=== PATIENT | male | born 1965 | race African-American/Black ===

== ENCOUNTER 2019-06-20 14:12 | Emergency (ER) | payer OTHER ==
[2019-06-20 14:23] VITALS: BMI 21.5
[2019-06-20] MEDS ORDERED: ALBUTEROL SO4 2.5/IPRATROPIUM 0.5 INH SOL 3 ML VIAL.NEB. NEB ONE ×3 (14:40→15:03)
[2019-06-20] MEDS ORDERED: methylPREDNISolone NA SUCC 125 MG/2 ML VIAL IVPUSH ONE (14:40)
[2019-06-20] MEDS ORDERED: methylPREDNISolone NA SUCC 125 MG/2 ML VIAL ONE (14:42)
--- NOTE | 2019-06-20 14:50 | PDOC ---
History of Present Illness - General Chief Complaint: Asthma Stated Complaint: DIFFICULTY BREATHING Time Seen by Provider: 06/20/19 14:38 History Source: Patient Exam Limitations: Clinical Condition - History of Present Illness Initial Comments: 06/20/19 14:47 Patient with past medical history of asthma presented with complaint of over 1 hour history of wheezing, chest tightness and coughing status post doing housecleaning and started having chest tightness. Patient called EMS and reported had 1 nebulizer treatment given by EMS in route over here. Patient reported has not had an asthma attack in many months and ran out of his inhaler medication. Denies fever, chills, chest pain, dizziness, palpitations, numbness or tingling sensation. Denies any other symptoms Is this a multiple visit Asthma Patient?: No Timing/Duration: reports: just prior to arrival Past History - Past Medical History Allergies/Adverse Reactions: Allergies Allergy/AdvReac Type Severity Reaction Status Date / Time No Known Allergies Allergy Verified 06/20/19 14:23 Home Medications: Ambulatory Orders Albuterol Sulfate Inhaler - [Ventolin Hfa Inhaler -] 2 inh PO Q6H #1 inh Methylprednisolone [Medrol Dose Meliton] 4 mg PO ASDIR #21 tablet 06/20/19 Montelukast Na [Singulair -] 10 mg PO DAILY #7 tablet 06/20/19 Asthma: Yes COPD: No - Surgical History Neurologic Surgery: Yes (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) - Psycho Social/Smoking Cessation Hx Smoking History: Current every day smoker Have you smoked in the past 12 months: Yes Number of Cigarettes Smoked Daily: 3 Information on smoking cessation initiated: Yes Hx Alcohol Use: No Drug/Substance Use Hx: No Review of Systems - Review of Systems Able to Perform ROS?: Yes Is the patient limited Jamaican proficient: No Constitutional: No: Chills, Fever, Malaise HEENTM: No: Symptoms Reported, See HPI, Eye Pain, Blurred Vision, Tearing, Recent change in vision, Double Vision, Cataracts, Ear Pain, Ocular Prothesis, Ear Discharge, Nose Pain, Nose Congestion, Tinnitus, Nose Bleeding, Hearing Loss , Throat Pain, Throat Swelling, Mouth Pain, Dental Problems, Difficulty Swallowing, Mouth Swelling, Other Respiratory: Yes: Symptoms reported, See HPI, Cough, SOB at Rest, Wheezing. No : Orthopnea, Shortness of Breath, SOB with Exertion, Stridor, Productive cough, Hemoptysis Cardiac (ROS): Yes: Symptoms Reported, See HPI, Chest Tightness. No: Chest Pain , Edema, Irregular Heart Rate, Lightheadedness, Palpitations, Syncope, Other ABD/GI: No: Symptoms Reported, Nausea, Vomiting Musculoskeletal: No: Symptoms Reported Integumentary: No: Symptoms Reported, Rash Neurological: No: Symptoms reported, See HPI, Headache, Dizziness All Other Systems: Reviewed and Negative *Physical Exam - Vital Signs Last Vital Signs Temp Pulse Resp BP Pulse Ox 97.4 F L 74 18 150/89 99 06/20/19 14:16 06/20/19 14:16 06/20/19 14:16 06/20/19 14:16 06/20/19 14:16 - Physical Exam 06/20/19 14:49 GENERAL: Well developed, well nourished. Awake and alert in mild acute distress. HEENT: Normocephalic, atraumatic. PERRLA, EOMI. No conjunctival pallor. Sclera are non-icteric. Moist mucous membranes. Oropharynx is clear. NECK: Supple. Full ROM. CARDIOVASCULAR: Regular rate and rhythm. No murmurs, rubs, or gallops. Distal pulses are 2+ and symmetric. PULMONARY: Moderate diffuse respiratory wheezing with mild respiratory distress. No rales or rhonchi. MUSCULOSKELETAL Normal range of motion at all joints. SKIN: Warm and dry. Normal capillary refill. No rashes. no cyanosis. NEUROLOGICAL: Alert, awake, appropriate. Gait is normal without ataxia. PSYCHIATRIC: Cooperative. Good eye contact. Appropriate mood General Appearance: Yes: Nourished, Appropriately Dressed, Mild Distress Medical Decision Making - Medical Decision Making 06/20/19 14:48 Patient with past medical history of asthma presented with complaint of over 1 hour history of wheezing, chest tightness and coughing status post doing housecleaning and started having chest tightness. Patient called EMS and reported had 1 nebulizer treatment given by EMS in route over here. Patient reported has not had an asthma attack in many months and ran out of his inhaler medication. Denies fever, chills, chest pain, dizziness, palpitations, numbness or tingling sensation. Denies any other symptoms Exam significant for moderate diffuse wheezing without rhonchi or rails with patient in mild respiratory distress. Symptoms likely asthma exacerbation. DuoNeb 3 treatment ordered for bronchospasm and wheezing and Solu-Medrol 125 mg IV ordered for bronchospasm. Reassess after 20 minutes 06/20/19 15:34 Patient report improvement in wheezing and chest tightness post duoneb and solumedrol. Patient stable for discharge on ventolin prn for Asthma and medrol- meliton with pulmonology f/u Discharge - Discharge Information Problems reviewed: Yes Clinical Impression/Diagnosis: Bronchospasm, acute Asthma attack Qualifiers: Asthma severity: mild Asthma persistence: intermittent Qualified Code(s): J45.21 - Mild intermittent asthma with (acute) exacerbation Condition: Improved Disposition: HOME - Admission No - Additional Discharge Information Prescriptions: Albuterol Sulfate Inhaler - [Ventolin Hfa Inhaler -] 2 inh PO Q6H #1 inh Methylprednisolone [Medrol Dose Meliton] 4 mg PO ASDIR #21 tablet Montelukast Na [Singulair -] 10 mg PO DAILY #7 tablet - Follow up/Referral Referrals: Leonidas Church MD [Staff Physician] - - Patient Discharge Instructions Patient Printed Discharge Instructions: Asthma -- Adult Additional Instructions: Take prescribed inhaler as needed for Asthma. Follow-up with referred seasonal driver if Asthma symptoms persist. Come back to ER if worsening shortness of breathe, chest pains, dizziness - Post Discharge Activity
[2019-06-20 15:49] VITALS: BP 125/77; PULSE 78; TEMP 98.1
== END 2019-06-20 16:00 | disposition home or self-care (01) ==
LOC: JER 14:12
PROC: 3E0F7GC Introduction of Other Therapeutic Substance into Respiratory Tract, Via Natural or Artificial Opening (ICD-10-PCS; principal; 2019-06-20)
PROC: 3E0333Z Introduction of Anti-inflammatory into Peripheral Vein, Percutaneous Approach (ICD-10-PCS; 2019-06-20)
DX: J45.21 Mild intermittent asthma with (acute) exacerbation (principal)
CPT/HCPCS: 94640; 96374; 99282-25

== ENCOUNTER 2022-01-19 14:14 | Emergency (ER) | payer OTHER ==
[2022-01-19 14:23] VITALS: RESP 16; BMI 17.6
[2022-01-19] MEDS ORDERED: ACETAMINOPHEN 325 MG TABLET (FP) PO ONE (14:50)
[2022-01-19] MEDS ORDERED: ACETAMINOPHEN 325 MG TABLET (FP) ONE (14:52)
[2022-01-19] MEDS ORDERED: SODIUM CHLORIDE 0.9% 500 ML INFUS.BAG IV ONE (15:08)
[2022-01-19 15:50] VITALS: BP 115/54; PULSE 80; TEMP 99.7
== END 2022-01-19 16:46 | disposition home or self-care (01) ==
LOC: JER 14:14
DX: B34.9 Viral infection, unspecified (principal)
CPT/HCPCS: 0241U-QW; 99283-25

== ENCOUNTER 2022-01-24 20:33 | Inpatient (IN) | payer OTHER ==
[2022-01-24] MEDS ORDERED: LACTATED RINGERS SOLUTION 1,000 ML/1,000 ML INFUS.BAG IV SCH (22:45)
[2022-01-24 23:03] LABS: BASO % 0.5 % (0-2.0); EOS % 0.6 % (0-4.5); HEMATOCRIT 33.2 % (35.4-49); HEMOGLOBIN 11.4 GM/dL (11.7-16.9); LYMPH % 6.2 % (8-40); MCH 33.2 pg (25.7-33.7); MCHC 34.3 g/dl (32.0-35.9); MEAN CELL VOLUME 96.8 fl (80-96); MEAN PLT VOLUME 9.3 fl (7.5-11.1); MONO % 7.3 % (3.8-10.2); NEUT % 85.4 % (42.8-82.8); PLATELET COUNT 317 10^3/uL (134-434); RBC 3.43 M/mm3 (4.00-5.60); RDW 13.2 % (11.9-15.9); WHITE BLOOD COUNT 12.3 K/mm3 (4.0-10.0)
[2022-01-24 23:22] LABS: CALCIUM 8.9 mg/dL (8.5-10.1)
[2022-01-24 23:23] LABS: BLOOD UREA NITROGEN 48.9 mg/dL (7-18); MAGNESIUM 2.1 mg/dL (1.8-2.4)
[2022-01-24 23:26] LABS: CREATININE 2.9 mg/dL (0.55-1.3)
[2022-01-24 23:27] LABS: TOT PROT 7.7 g/dl (6.4-8.2)
[2022-01-25] MEDS ORDERED: SODIUM CHLORIDE 0.9% 500 ML INFUS.BAG IV ONE (00:46)
[2022-01-25] MEDS ORDERED: AZITHROMYCIN IVPB 500 MG in DEXTROSE 5%-WATER - 250 ML IVPB ONE (00:46)
[2022-01-25] MEDS ORDERED: CEFTRIAXONE 1,000 MG in DEXTROSE 5%-WATER - 50 ML IVPB ONE (00:46)
[2022-01-25] MEDS ORDERED: AZITHROMYCIN IVPB 500 MG/250 ML BAG IVPB ONE (02:13)
[2022-01-25] MEDS ORDERED: CEFTRIAXONE 1 GM/50 ML BAG ONE (02:13)
[2022-01-25 03:30] LABS: EPI CELLS >36 /uL (0-25.1); HYALINE CASTS 24 /uL (0-3.1); PH,URINE 5.5 (5.0-8.0); URINE APPEARANCE CLOUDY; URINE BACTERIA 0 /uL (0-1359); URINE BILIRUBIN NEGATIVE (NEGATIVE); URINE COLOR DK YELLOW; URINE GLUCOSE (UA) NEGATIVE (NEGATIVE); URINE KETONE NEGATIVE (NEGATIVE); URINE LEUK ESTERASE NEGATIVE (NEGATIVE); URINE NITRITE NEGATIVE (NEGATIVE); URINE PROTEIN 2+ (NEGATIVE); URINE RBC 8 /uL (0-23.9); URINE WBC 52 /uL (0-25.8)
[2022-01-25] MEDS ORDERED: ALBUTEROL SO4 0.083% IH SOL 2.5 MG/3 ML VIAL.NEB. NEB PRN (06:55)
[2022-01-25 06:56] LABS: BASO % 0.3 % (0-2.0); EOS % 0.5 % (0-4.5); HEMATOCRIT 33.6 % (35.4-49); HEMOGLOBIN 11.1 GM/dL (11.7-16.9); LYMPH % 4.1 % (8-40); MCH 32.3 pg (25.7-33.7); MCHC 33.1 g/dl (32.0-35.9); MEAN CELL VOLUME 97.6 fl (80-96); MONO % 6.6 % (3.8-10.2); NEUT % 88.5 % (42.8-82.8); PLATELET COUNT 327 10^3/uL (134-434); RBC 3.44 M/mm3 (4.00-5.60); RDW 13.6 % (11.9-15.9); WHITE BLOOD COUNT 13.4 K/mm3 (4.0-10.0)
[2022-01-25 07:26] LABS: BLOOD UREA NITROGEN 45.5 mg/dL (7-18); CALCIUM 8.2 mg/dL (8.5-10.1)
[2022-01-25 07:29] LABS: CREATININE 2.1 mg/dL (0.55-1.3)
[2022-01-25 07:31] LABS: BILIRUBIN,TOTAL 0.6 mg/dL (0.2-1); TOT PROT 6.6 g/dl (6.4-8.2)
[2022-01-25 07:33] LABS: ALBUMIN 2.4 g/dl (3.4-5.0)
[2022-01-25] MEDS ORDERED: ACETAMINOPHEN 325 MG TABLET (FP) PO ONE (09:33)
[2022-01-25] MEDS ORDERED: ACETAMINOPHEN 325 MG TABLET (FP) ONE (09:34)
[2022-01-25] MEDS ORDERED: ALBUTEROL SO4 2.5/IPRATROPIUM 0.5 INH SOL 3 ML VIAL.NEB. NEB PRN (14:31)
[2022-01-25 14:52] LABS: EPI CELLS >36 /uL (0-25.1); HYALINE CASTS 7 /uL (0-3.1); PH,URINE 5.5 (5.0-8.0); URINE APPEARANCE CLEAR; URINE BACTERIA 5 /uL (0-1359); URINE BILIRUBIN NEGATIVE (NEGATIVE); URINE COLOR YELLOW; URINE GLUCOSE (UA) NEGATIVE (NEGATIVE); URINE KETONE NEGATIVE (NEGATIVE); URINE LEUK ESTERASE NEGATIVE (NEGATIVE); URINE NITRITE NEGATIVE (NEGATIVE); URINE PROTEIN 2+ (NEGATIVE); URINE RBC 10 /uL (0-23.9); URINE WBC 34 /uL (0-25.8)
[2022-01-25] MEDS: SODIUM CHLORIDE 1,000 ML IV SCH (16:14)
[2022-01-25] MEDS: ACETAMINOPHEN 325 MG TABLET (FP) PO PRN (17:56)
[2022-01-25] MEDS ORDERED: ACETAMINOPHEN 1000 MG/100 ML BAG IVPB ONE (23:47)
[2022-01-26 07:35] LABS: BASO % 0.5 % (0-2.0); HEMATOCRIT 28.5 % (35.4-49); HEMOGLOBIN 9.5 GM/dL (11.7-16.9); LYMPH % 11.9 % (8-40); MCH 31.9 pg (25.7-33.7); MCHC 33.3 g/dl (32.0-35.9); MEAN CELL VOLUME 95.9 fl (80-96); MONO % 10.5 % (3.8-10.2); NEUT % 75.1 % (42.8-82.8); PLATELET COUNT 353 10^3/uL (134-434); RBC 2.97 M/mm3 (4.00-5.60); RDW 13.3 % (11.9-15.9); WHITE BLOOD COUNT 9.3 K/mm3 (4.0-10.0)
[2022-01-26 08:00] LABS: CALCIUM 8.3 mg/dL (8.5-10.1)
[2022-01-26 08:01] LABS: ALBUMIN 2.1 g/dl (3.4-5.0); BLOOD UREA NITROGEN 27.1 mg/dL (7-18); MAGNESIUM 1.8 mg/dL (1.8-2.4)
[2022-01-26 08:03] LABS: CREATININE 1.2 mg/dL (0.55-1.3)
[2022-01-26 08:05] LABS: BILIRUBIN,TOTAL 0.8 mg/dL (0.2-1); TOT PROT 5.8 g/dl (6.4-8.2)
[2022-01-26] MEDS ORDERED: CEFTRIAXONE 1 GM in DEXTROSE 5%-WATER - 50 ML IVPB SCH (10:00)
[2022-01-26] MEDS ORDERED: AZITHROMYCIN IVPB 500 MG in DEXTROSE 5%-WATER - 250 ML IVPB SCH (10:00)
[2022-01-26] MEDS: ACETAMINOPHEN 325 MG TABLET (FP) PO PRN (14:53)
[2022-01-26] MEDS: MULTIVITAMINS (DAILY MVI) TABLET (FP) PO SCH (14:53)
[2022-01-26] MEDS: SODIUM CHLORIDE 1,000 ML IV SCH (14:54)
[2022-01-26 15:36] LABS: EPI CELLS 12 /uL (0-25.1); HYALINE CASTS 1 /uL (0-3.1); PH,URINE 6.5 (5.0-8.0); URINE APPEARANCE CLEAR; URINE BACTERIA 4 /uL (0-1359); URINE BILIRUBIN NEGATIVE (NEGATIVE); URINE COLOR YELLOW; URINE GLUCOSE (UA) NEGATIVE (NEGATIVE); URINE KETONE NEGATIVE (NEGATIVE); URINE LEUK ESTERASE NEGATIVE (NEGATIVE); URINE NITRITE NEGATIVE (NEGATIVE); URINE PROTEIN 2+ (NEGATIVE); URINE RBC 28 /uL (0-23.9); URINE WBC 14 /uL (0-25.8)
[2022-01-26] MEDS: HEPARIN NA (PORCINE) 5,000 UNITS/ML 1ML VIAL SQ SCH (23:22)
[2022-01-26 23:30] VITALS: BMI 17.4
[2022-01-27] MEDS: MULTIVITAMINS (DAILY MVI) TABLET (FP) PO SCH (10:15)
[2022-01-27] MEDS: PANTOPRAZOLE 40 MG TABLET PO SCH (10:15)
[2022-01-27] MEDS: HEPARIN NA (PORCINE) 5,000 UNITS/ML 1ML VIAL SQ SCH ×2 (10:16→21:26)
[2022-01-27 12:20] LABS: BASO % 0.7 % (0-2.0); EOS % 2.2 % (0-4.5); HEMATOCRIT 28.4 % (35.4-49); HEMOGLOBIN 9.4 GM/dL (11.7-16.9); LYMPH % 11.4 % (8-40); MCH 32.2 pg (25.7-33.7); MCHC 33.1 g/dl (32.0-35.9); MEAN CELL VOLUME 97.4 fl (80-96); MEAN PLT VOLUME 8.8 fl (7.5-11.1); MONO % 11.4 % (3.8-10.2); NEUT % 74.3 % (42.8-82.8); PLATELET COUNT 445 10^3/uL (134-434); RBC 2.92 M/mm3 (4.00-5.60); RDW 13.8 % (11.9-15.9)
[2022-01-27 12:33] LABS: CALCIUM 8.2 mg/dL (8.5-10.1)
[2022-01-27 12:34] LABS: ALBUMIN 2.1 g/dl (3.4-5.0); BLOOD UREA NITROGEN 15.1 mg/dL (7-18); MAGNESIUM 1.6 mg/dL (1.8-2.4)
[2022-01-27 12:36] LABS: CHOLESTEROL 121 mg/dL (50-200)
[2022-01-27 12:37] LABS: CREATININE 0.9 mg/dL (0.55-1.3); LDL CHOLESTEROL (ONLY SJRH) 77 mg/dL (5-100); TRIGLYCERIDES 144 mg/dL (0-150)
[2022-01-27 12:38] LABS: BILIRUBIN,TOTAL 0.6 mg/dL (0.2-1)
[2022-01-27 12:39] LABS: HDL CHOLESTEROL 15 mg/dL (40-60)
[2022-01-27] MEDS: SODIUM CHLORIDE 1,000 ML IV SCH (18:33)
[2022-01-28 07:57] LABS: BASO % 0.6 % (0-2.0); EOS % 2.9 % (0-4.5); HEMOGLOBIN 9.9 GM/dL (11.7-16.9); LYMPH % 18.4 % (8-40); MCH 33.4 pg (25.7-33.7); MCHC 34.2 g/dl (32.0-35.9); MEAN CELL VOLUME 97.5 fl (80-96); MONO % 7.6 % (3.8-10.2); NEUT % 70.5 % (42.8-82.8); PLATELET COUNT 498 10^3/uL (134-434); RBC 2.97 M/mm3 (4.00-5.60); RDW 13.8 % (11.9-15.9); WHITE BLOOD COUNT 10.5 K/mm3 (4.0-10.0)
[2022-01-28 08:35] LABS: ALBUMIN 2.3 g/dl (3.4-5.0); BLOOD UREA NITROGEN 13.6 mg/dL (7-18); CALCIUM 8.6 mg/dL (8.5-10.1); MAGNESIUM 1.6 mg/dL (1.8-2.4)
[2022-01-28 08:38] LABS: CREATININE 0.9 mg/dL (0.55-1.3)
[2022-01-28 08:40] LABS: BILIRUBIN,TOTAL 0.6 mg/dL (0.2-1); TOT PROT 6.4 g/dl (6.4-8.2)
[2022-01-28] MEDS: MULTIVITAMINS (DAILY MVI) TABLET (FP) PO SCH (10:17)
[2022-01-28] MEDS: HEPARIN NA (PORCINE) 5,000 UNITS/ML 1ML VIAL SQ SCH ×2 (10:17→21:26)
[2022-01-28] MEDS: PANTOPRAZOLE 40 MG TABLET PO SCH (10:17)
[2022-01-28] MEDS ORDERED: MAGNESIUM OXIDE 400 MG TABLET (FP) PO ONE (11:30)
[2022-01-28] MEDS: ACETAMINOPHEN 325 MG TABLET (FP) PO PRN (21:22)
[2022-01-28] MEDS: MAGNESIUM OXIDE 400 MG TABLET (FP) PO SCH (21:26)
[2022-01-29] MEDS: ACETAMINOPHEN 325 MG TABLET (FP) PO PRN ×2 (05:45→19:56)
[2022-01-29 09:02] LABS: BASO % 0.7 % (0-2.0); EOS % 3.1 % (0-4.5); HEMATOCRIT 26.6 % (35.4-49); HEMOGLOBIN 8.9 GM/dL (11.7-16.9); LYMPH % 15.9 % (8-40); MCH 32.7 pg (25.7-33.7); MCHC 33.6 g/dl (32.0-35.9); MEAN CELL VOLUME 97.3 fl (80-96); MEAN PLT VOLUME 9.1 fl (7.5-11.1); MONO % 8.5 % (3.8-10.2); NEUT % 71.8 % (42.8-82.8); PLATELET COUNT 545 10^3/uL (134-434); RBC 2.74 M/mm3 (4.00-5.60); RDW 13.9 % (11.9-15.9); WHITE BLOOD COUNT 9.5 K/mm3 (4.0-10.0)
[2022-01-29 09:32] LABS: MAGNESIUM 1.5 mg/dL (1.8-2.4)
[2022-01-29] MEDS ORDERED: MAGNESIUM SULF 50% (8.12 MEQ/2 ML-1 GM VIAL) IVPB ONE (09:40)
[2022-01-29 10:01] LABS: IRON SERUM 55 ug/dL (50-175); TOTAL IRON BINDING CAPACITY 184 ug/dL (250-450)
[2022-01-29] MEDS: MAGNESIUM OXIDE 400 MG TABLET (FP) PO SCH ×2 (10:11→21:36)
[2022-01-29] MEDS: MULTIVITAMINS (DAILY MVI) TABLET (FP) PO SCH (10:11)
[2022-01-29] MEDS: HEPARIN NA (PORCINE) 5,000 UNITS/ML 1ML VIAL SQ SCH ×2 (10:11→21:35)
[2022-01-29] MEDS: PANTOPRAZOLE 40 MG TABLET PO SCH (10:11)
[2022-01-29 11:45] LABS: BLOOD UREA NITROGEN 13.9 mg/dL (7-18); CALCIUM 8.1 mg/dL (8.5-10.1)
[2022-01-29 11:48] LABS: CREATININE 0.7 mg/dL (0.55-1.3)
[2022-01-29 11:50] LABS: BILIRUBIN,TOTAL 0.5 mg/dL (0.2-1); TOT PROT 5.8 g/dl (6.4-8.2)
[2022-01-30] MEDS: ACETAMINOPHEN 325 MG TABLET (FP) PO PRN (06:08)
[2022-01-30 07:26] LABS: BASO % 1.2 % (0-2.0); EOS % 4.2 % (0-4.5); HEMATOCRIT 26.7 % (35.4-49); HEMOGLOBIN 8.9 GM/dL (11.7-16.9); LYMPH % 18.3 % (8-40); MCH 32.5 pg (25.7-33.7); MCHC 33.4 g/dl (32.0-35.9); MEAN CELL VOLUME 97.2 fl (80-96); MEAN PLT VOLUME 8.7 fl (7.5-11.1); MONO % 8.3 % (3.8-10.2); PLATELET COUNT 638 10^3/uL (134-434); RBC 2.75 M/mm3 (4.00-5.60); RDW 13.9 % (11.9-15.9); WHITE BLOOD COUNT 8.9 K/mm3 (4.0-10.0)
[2022-01-30 07:46] LABS: BLOOD UREA NITROGEN 13.7 mg/dL (7-18); CALCIUM 8.3 mg/dL (8.5-10.1)
[2022-01-30 07:49] LABS: CREATININE 0.7 mg/dL (0.55-1.3)
[2022-01-30 07:51] LABS: BILIRUBIN,TOTAL 0.3 mg/dL (0.2-1); TOT PROT 5.6 g/dl (6.4-8.2)
[2022-01-30] MEDS ORDERED: FERROUS SO4 325 MG TABLET (FP) PO SCH (08:00)
[2022-01-30] MEDS: PANTOPRAZOLE 40 MG TABLET PO SCH (09:11)
[2022-01-30] MEDS: MAGNESIUM OXIDE 400 MG TABLET (FP) PO SCH (09:11)
[2022-01-30] MEDS: HEPARIN NA (PORCINE) 5,000 UNITS/ML 1ML VIAL SQ SCH (09:11)
[2022-01-30] MEDS: MULTIVITAMINS (DAILY MVI) TABLET (FP) PO SCH (09:11)
[2022-01-30 10:00] VITALS: BP 120/74; PULSE 74; RESP 14; TEMP 98
== END 2022-01-30 12:52 | disposition home or self-care (01) | DRG 720 ==
LOC: JER 20:33 → JERBED 01-25 00:47 → J4W 01-25 10:06 → JERBED 01-25 20:36 → J4W 01-25 20:38
PROVIDERS: ADMIT Internal Medicine; ATTEND Nurse Practitioner Acute Care
DX: A41.89 Other specified sepsis (principal); A48.1 Legionnaires' disease; N17.9 Acute kidney failure, unspecified; R80.9 Proteinuria, unspecified; R64 Cachexia; R53.81 Other malaise; R19.7 Diarrhea, unspecified; D64.9 Anemia, unspecified; I95.9 Hypotension, unspecified; N28.1 Cyst of kidney, acquired; Q67.5 Congenital deformity of spine; R50.9 Fever, unspecified; N18.9 Chronic kidney disease, unspecified; R94.31 Abnormal electrocardiogram [ECG] [EKG]; J45.21 Mild intermittent asthma with (acute) exacerbation; E43 Unspecified severe protein-calorie malnutrition; Z68.1 Body mass index [BMI] 19.9 or less, adult
CPT/HCPCS: 0241U-QW; 36415; 71046-TC-FY; 71250-TC; 76775-TC; 80053; 80061; 81003; 82272; 82436; 82550; 82570; 82607; 82746; 83036; 83540; 83550; 83735; 84100; 84133; 84155; 84165; 84300; 84484; 85025; 87040; 87070; 87086; 87899; 93005; 93010; 93306-TC; 99285-25; C9803-CS; J1644; U0003; U0005

== ENCOUNTER 2023-09-16 18:19 | Emergency (ER) | payer OTHER ==
[2023-09-16 18:44] VITALS: BP 143/89; PULSE 66; RESP 20; TEMP 97.9; BMI 18.6
[2023-09-16] MEDS ORDERED: LIDOCAINE 5% TOPICAL PATCH ONE (18:45)
[2023-09-16] MEDS ORDERED: METHOCARBAMOL 500 MG TABLET ONE (18:45)
[2023-09-16] MEDS ORDERED: KETOROLAC TROMETHAMINE 30 MG/1 ML VIAL ONE (18:45)
[2023-09-16] MEDS: METHOCARBAMOL 500 MG TABLET PO ONE (18:46)
[2023-09-16] MEDS: LIDOCAINE 5% TOPICAL PATCH TP ONE (18:46)
[2023-09-16] MEDS: KETOROLAC TROMETHAMINE 30 MG/1 ML VIAL IM ONE ×2 (18:46→20:50)
[2023-09-16] MEDS ORDERED: LIDOCAINE PATCH REMOVAL MC ONE (22:00)
== END 2023-09-16 20:55 | disposition home or self-care (01) ==
LOC: FER 18:19
PROC: 3E023GC Introduction of Other Therapeutic Substance into Muscle, Percutaneous Approach (ICD-10-PCS; principal; 2023-09-16)
DX: M54.42 Lumbago with sciatica, left side (principal); R20.2 Paresthesia of skin; X50.0XXA Overexertion from strenuous movement or load, initial encounter; Y99.0 Civilian activity done for income or pay
CPT/HCPCS: 73502-TC-LT-FY; 99284-25